=== PATIENT | male | born 1985 | race African-American/Black ===

== ENCOUNTER 2020-01-21 16:57 | Emergency (ER) | payer BC ==
[~2020-01-21] VITALS: Ht 177.8 cm; Wt 86.2 kg
[2020-01-21 21:17] LABS: Eosinophils # (auto) 0 10 ^3/uL (0-0.8); Lymphocytes % (auto) 17.6 % (10.0-50.0); Monocytes # (auto) 0.5 10 ^3/uL (0-1.3); Platelet Count (auto) 259 10^3/uL (140-450); Red Blood Cells 5.49 10^6/uL (4.5-5.90); White Blood Cell 11.2 10^3/uL (4.4-10.8)
[2020-01-21 21:18] LABS: Basophils # (auto) 0 10 ^3/uL (0-0.2); Basophils % (auto) 0.4 % (0.0-2.0); Eosinophils % (auto) 0.1 % (0.0-7.0); Hematocrit 51.2 % (41.0-53.0); Mean Corpuscular Hemoglobin 32.7 pg (28.0-32.0); Mean Corpuscular Hgb Conc. 35.1 g/dL (32.0-36.0); Mean Corpuscular Volume 93.3 fL (80.0-100.0); Monocytes % (auto) 4.9 % (0.0-12.0); Neutrophils # (auto) 8.6 10 ^3/uL (1.6-8.6); Nucleated Red Blood Cells % 0.2 %; Red Cell Distribution Width 12.9 % (11.8-14.3)
[2020-01-21 21:36] LABS: INR 1.17 (0.9-1.15); Partial Thromboplastin Time 31.7 sec (23.0-31.2)
[2020-01-21 21:39] LABS: Albumin 4.9 g/dL (3.4-5.0); Calcium 9.7 mg/dL (8.5-10.1); Magnesium 2.6 mg/dL (1.6-2.6)
[2020-01-21 21:43] LABS: BUN/Creatinine Ratio 11.2; Total Protein 8.4 g/dL (6.4-8.2)
[2020-01-21] MEDS ORDERED: PROPRANOLOL HCL 20 MG TAB PO ONE (22:15)
[2020-01-21] MEDS ORDERED: POTASSIUM EFFERVESENT TAB 25 MEQ PO ONE (23:00)
[2020-01-21 23:47] VITALS: BP 133/87
== END 2020-01-22 00:09 | disposition home or self-care (01) ==
LOC: ER 16:57 → EDSEX 16:57 → ER 01-22 00:09
DX: R00.2 Palpitations (principal); R03.0 Elevated blood-pressure reading, without diagnosis of hypertension; E87.6 Hypokalemia
CPT/HCPCS: 36415; 71045; 80053; 83735; 83880; 84443; 84484; 85025; 85379; 85610; 85730; 93005